=== PATIENT | female | born 1985 | race Caucasian/White ===

== ENCOUNTER → 2023-07-15 09:55 | Outpatient (REF) | payer OTHER, SELFPAY | LOC: PNTC 09:55 | PROVIDERS: ATTENDING PHYSICIAN Obstetrics & Gynecology | DX: O09.529 Supervision of elderly multigravida, unspecified trimester (principal) | CPT/HCPCS: 76816 ==

== ENCOUNTER → 2023-08-26 09:54 | Outpatient (REF) | payer OTHER, SELFPAY | LOC: PNTC 09:54 | PROVIDERS: ATTENDING PHYSICIAN Obstetrics & Gynecology | DX: O09.529 Supervision of elderly multigravida, unspecified trimester (principal) | CPT/HCPCS: 76816 ==

== ENCOUNTER 2023-10-21 02:01 | Observation (INO) | payer OTHER, SELFPAY ==
[2023-10-21 02:12] VITALS: BMI 28.3
[2023-10-21 02:57] VITALS: BP 106/72
== END 2023-10-21 06:42 | disposition home or self-care (01) ==
LOC: LDRP 02:01
PROVIDERS: ADMITTING PHYSICIAN Obstetrics & Gynecology
DX: O48.0 Post-term pregnancy (principal); Z3A.40 40 weeks gestation of pregnancy
CPT/HCPCS: 76815; 36415; 86850; 86900; 86901; G0378

== ENCOUNTER 2023-10-21 09:48 | Inpatient (IN) | payer OTHER, SELFPAY ==
[2023-10-21] MEDS: LR 1000 IV ×3 (10:15→13:15)
[2023-10-21 10:24] VITALS: BP 104/70; BMI 28.3
[2023-10-21 11:06] LABS: % Basophils 0.3 % (0-2); % Eosinophils 0.1 % (0-6); % Immature Granulocytes 0.7 % (0-0.5); % Lymphocytes 20.1 % (20.5-51.1); % Monocytes 3.4 % (1.7-9.3); % Neutrophils 75.4 % (42.2-75.2); Absolute Immature Granulocytes 0.1 10^3/uL (0-0.05); Absolute Lymphocytes 2.4 10^3/uL (1.2-3.4); Absolute Monocytes 0.4 10^3/uL (0.1-0.6); Absolute Neutrophils 9.1 10^3/uL (1.4-6.5); Hematocrit 37.9 % (37.0-47.0); Hemoglobin 13.1 g/dL (12.0-16.0); Mean Corp Hgb Conc. 34.6 g/dL (33.0-37.0); Mean Corpuscular Hgb 31.6 pg (27.0-31.0); Mean Corpuscular Volume 91.3 fL (81.0-99.0); Mean Platelet Volume 9.7 fL (7.4-10.4); Nucleated Red Blood Cells % 0 %; Platelet Count 213 10^3/uL (130-400); Red Blood Cell Count 4.15 10^6/uL (4.20-5.40); Red Cell Dist. Width 12.8 % (11.5-14.5); White Blood Cell Count 12.1 10^3/uL (4.8-10.8)
[2023-10-21] MEDS: FENTANYL/BUPIVACAINE 100 EPIDURAL (12:48)
[2023-10-21] MEDS: SUBLIMAZE 100 MCG EPIDURAL (12:48)
[2023-10-21] MEDS: PITOCIN 30 UNITS/NSS 500 ML IV ×2 (14:04→17:55)
[2023-10-21] MEDS: ZOFRAN 4 MG IV (18:59)
[2023-10-22] MEDS: MOTRIN 600 MG PO ×3 (01:03→15:35)
[2023-10-22] MEDS: TYLENOL 650 MG PO ×3 (05:04→19:36)
[2023-10-22 05:06] LABS: Hematocrit 33.7 % (37.0-47.0); Hemoglobin 11.8 g/dL (12.0-16.0)
[2023-10-22] MEDS: MIRALAX 17 GRAMS PO (08:03)
[2023-10-22] MEDS: PRENATAL PLUS 1 TABLET PO (08:03)
[2023-10-22 16:06] LABS: Syphilis/T. pallidum Ab Reflex Negative (Negative)
[2023-10-22] MEDS: SENOKOT-S 1 TABLET PO (22:24)
[2023-10-23] MEDS: MOTRIN 600 MG PO ×2 (00:34→08:01)
--- NOTE | 2023-10-23 03:20 | DOWNTIME ---
There was a [employer] Downtime on 10/22/2023 from 0100 to 10/23/2023 at 0300. Downtime documentation of patient's care, including medication administrations, has been reconciled in the electronic record per guidelines. Refer to the
patient's paper chart under the miscellaneous tab to see printed paper medication records and downtime forms.
[2023-10-23] MEDS: TYLENOL 650 MG PO (06:34)
[2023-10-23] MEDS: PRENATAL PLUS 1 TABLET PO (08:01)
[2023-10-23] MEDS: MIRALAX 17 GRAMS PO (08:01)
== END 2023-10-23 12:15 | disposition home or self-care (01) | DRG 807 ==
LOC: LDRP 09:48
PROVIDERS: ADMITTING PHYSICIAN Obstetrics & Gynecology
PROC: 10E0XZZ Delivery of Products of Conception, External Approach (ICD-10-PCS; 2023-10-21)
PROC: 10907ZC Drainage of Amniotic Fluid, Therapeutic from Products of Conception, Via Natural or Artificial Opening (ICD-10-PCS; 2023-10-21)
PROC: 3E033VJ Introduction of Other Hormone into Peripheral Vein, Percutaneous Approach (ICD-10-PCS; 2023-10-21)
DX: O48.0 Post-term pregnancy (principal); Z37.0 Single live birth; Z3A.40 40 weeks gestation of pregnancy; O69.1XX0 Labor and delivery complicated by cord around neck, with compression, not applicable or unspecified
CPT/HCPCS: 36415; 85014; 85018; 85025; 86780; 86850; 86900; 86901; G0378

== ENCOUNTER → 2024-05-11 10:38 | Outpatient (REF) | payer OTHER, SELFPAY | LOC: PNTC 10:38 | PROVIDERS: ATTENDING PHYSICIAN Nurse Practitioner Family | DX: Z36.0 Encounter for antenatal screening for chromosomal anomalies (principal); O09.529 Supervision of elderly multigravida, unspecified trimester | CPT/HCPCS: 76801; 76813 ==

== ENCOUNTER → 2024-05-13 13:36 | Outpatient (REF) | payer OTHER, SELFPAY | LOC: PNTC 13:36 | PROVIDERS: ATTENDING PHYSICIAN Obstetrics & Gynecology | DX: Z36.0 Encounter for antenatal screening for chromosomal anomalies (principal) | CPT/HCPCS: 36415 ==

== ENCOUNTER → 2024-07-14 10:51 | Outpatient (REF) | payer OTHER, SELFPAY | LOC: PNTC 10:51 | PROVIDERS: ATTENDING PHYSICIAN Nurse Practitioner Family | DX: O09.519 Supervision of elderly primigravida, unspecified trimester (principal) | CPT/HCPCS: 76811 ==

== ENCOUNTER → 2024-09-08 10:51 | Outpatient (REF) | payer OTHER, SELFPAY | LOC: PNTC 10:51 | PROVIDERS: ATTENDING PHYSICIAN Nurse Practitioner Family | DX: O09.529 Supervision of elderly multigravida, unspecified trimester (principal) | CPT/HCPCS: 76816 ==

== ENCOUNTER → 2024-10-20 10:49 | Outpatient (REF) | payer OTHER, SELFPAY | LOC: PNTC 10:49 | PROVIDERS: ATTENDING PHYSICIAN Nurse Practitioner Family | DX: O09.529 Supervision of elderly multigravida, unspecified trimester (principal) | CPT/HCPCS: 76816 ==

== ENCOUNTER 2024-11-27 00:58 | Inpatient (IN) | payer OTHER, SELFPAY ==
[2024-11-27] MEDS: LR 1000 IV ×4 (01:29→11:38)
[2024-11-27 01:48] LABS: % Basophils 0.3 % (0-2); % Eosinophils 0.5 % (0-6); % Immature Granulocytes 0.4 % (0-0.5); % Lymphocytes 29.2 % (20.5-51.1); % Monocytes 4.2 % (1.7-9.3); % Neutrophils 65.4 % (42.2-75.2); Absolute Eosinophils 0.1 10^3/uL (0-0.7); Absolute Lymphocytes 2.7 10^3/uL (1.2-3.4); Absolute Monocytes 0.4 10^3/uL (0.1-0.6); Absolute Neutrophils 6.1 10^3/uL (1.4-6.5); Hematocrit 35.1 % (37.0-47.0); Hemoglobin 12.6 g/dL (12.0-16.0); Mean Corp Hgb Conc. 35.9 g/dL (33.0-37.0); Mean Corpuscular Hgb 31.1 pg (27.0-31.0); Mean Corpuscular Volume 86.7 fL (81.0-99.0); Mean Platelet Volume 9.4 fL (7.4-10.4); Nucleated Red Blood Cells % 0 %; Platelet Count 177 10^3/uL (130-400); Red Blood Cell Count 4.05 10^6/uL (4.20-5.40); White Blood Cell Count 9.3 10^3/uL (4.8-10.8)
[2024-11-27 01:50] VITALS: BP 101/62; BMI 28.3
[2024-11-27] MEDS: SUBLIMAZE 100 MCG EPIDURAL (02:35)
[2024-11-27] MEDS: FENTANYL/BUPIVACAINE 100 EPIDURAL ×2 (02:35→10:57)
[2024-11-27] MEDS: TUMS CHEWABLE TABLET 400 MG PO (06:29)
[2024-11-27] MEDS: PITOCIN 30 UNITS/NSS 500 ML IV ×2 (07:18→15:09)
[2024-11-27] MEDS: ZOFRAN 4 MG IV ×2 (07:31→16:34)
[2024-11-27] MEDS: MOTRIN 600 MG PO ×2 (17:07→23:44)
[2024-11-27] MEDS: TYLENOL 650 MG PO ×2 (17:30→23:44)
[2024-11-28] MEDS: TYLENOL 650 MG PO ×4 (03:51→19:59)
[2024-11-28 04:39] LABS: Hematocrit 32.8 % (37.0-47.0); Hemoglobin 11.4 g/dL (12.0-16.0)
[2024-11-28] MEDS: MOTRIN 600 MG PO ×3 (05:54→19:58)
[2024-11-28] MEDS: PRENATAL PLUS 1 TABLET PO (07:32)
[2024-11-28] MEDS: SENOKOT-S 1 TABLET PO (19:59)
[2024-11-29] MEDS: MOTRIN 600 MG PO (02:41)
[2024-11-29] MEDS: TYLENOL 650 MG PO ×2 (02:41→07:14)
[2024-11-29] MEDS: PRENATAL PLUS 1 TABLET PO (07:14)
[2024-12-01 12:04] LABS: Syphilis/T. pallidum Ab Reflex Negative (Negative)
== END 2024-11-29 12:35 | disposition home or self-care (01) | DRG 807 ==
LOC: LDRP 00:58
PROVIDERS: Obstetrics & Gynecology; ADMITTING PHYSICIAN Obstetrics & Gynecology
PROC: 0HQ9XZZ Repair Perineum Skin, External Approach (ICD-10-PCS; 2024-11-27)
PROC: 10907ZC Drainage of Amniotic Fluid, Therapeutic from Products of Conception, Via Natural or Artificial Opening (ICD-10-PCS; 2024-11-27)
PROC: 10E0XZZ Delivery of Products of Conception, External Approach (ICD-10-PCS; 2024-11-27)
DX: O77.0 Labor and delivery complicated by meconium in amniotic fluid (principal); Z37.0 Single live birth; Z3A.39 39 weeks gestation of pregnancy; O76 Abnormality in fetal heart rate and rhythm complicating labor and delivery; O70.0 First degree perineal laceration during delivery
CPT/HCPCS: 88307; 36415; 85014; 85018; 85025; 86780; 86850; 86900; 86901